=== PATIENT | female | born 2000 | race African-American/Black ===

== ENCOUNTER 2024-12-15 09:39 | Inpatient (IN) ==
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
[2024-12-15 11:01] LABS: Basophils # (auto) 0.01 K/uL (0.00-0.20); Basophils % (auto) 0.2 %; Eosinophils # (auto) 0.03 K/uL (0.00-0.50); Eosinophils % (auto) 0.5 %; Hematocrit (blood only) 37.2 % (37.0-47.0); Hemoglobin 12.6 g/dl (12.0-16.0); Immature Granulocytes # (auto) 0.01 K/uL (0.01-0.20); Immature Granulocytes % (auto) 0.2 %; Lymphocytes # (auto) 1.28 K/uL (1.20-3.40); Lymphocytes % (auto) 20.5 %; Mean Corpuscular Hemoglobin 29.6 pg (25.0-34.0); Mean Corpuscular Hgb Conc 33.9 g/dL (32.0-36.0); Mean Corpuscular Volume 87.3 fL (80.0-100.0); Mean Platelet Volume 10.4 fL (9.4-12.4); Monocytes % (auto) 6.4 %; Neutrophils # (auto) 4.51 K/uL (1.40-6.50); Neutrophils % (auto) 72.2 %; Platelet Count 210 K/uL (130-400); RDW Coefficient of Variation 14.7 % (11.5-14.5); RDW Standard Deviation 46.5 fL (36.4-46.3); Red Blood Count 4.26 M/uL (4.20-5.40); White Blood Count 6.24 K/ul (4.8-10.8)
[2024-12-15 11:36] LABS: Albumin Globulin Ratio 1.4 (0.9-2); Albumin Level 3.8 gm/dl (3.4-5.0); BUN Creatinine Ratio 11.5 (10-20); Bilirubin,Total 0.7 mg/dl (0.2-1.0); Calcium 8.2 mg/dl (8.6-10.3); Creatinine Clr Calc Pharmacy 132.2 ml/min; Globulin 2.8 gm/dl (2.5-4.0); Magnesium 1.6 mg/dl (1.7-2.4); Potassium 3.5 mmol/L (3.5-5.1); Total Protein 6.6 gm/dl (6.0-8.3); Uric Acid 5.6 mg/dl (2.6-7.2)
[2024-12-15 11:37] LABS: INR 1.1 (0.9-1.1); Partial Thromboplastin Time 27 Seconds (21-31)
[2024-12-15] MEDS: LABETALOL HCL IV 5 MG/ML 20ML IV STA ×2 (11:46→13:01)
[2024-12-15] MEDS: MAGNESIUM SULFATE / D5W 1 GM/100 ML BAG IV ONE (11:51)
[2024-12-15] MEDS: LACTATED RINGER'S 1,000 ML IV SCH (13:07)
[2024-12-15] MEDS: MAGNESIUM SULFATE / WTR 40 GM/1,000 ML BAG IV SCH (13:07)
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
[2024-12-15 13:30] LABS: Appearance Urine Cloudy (Clear); Bacteria Urine Automated None Seen (None Seen); Bilirubin Urine Negative (Negative); Blood Urine 3+ (Negative); Cast Urine Automated 0-2 /lpf (0-2); Color Urine Yellow; Glucose Urine UA Negative (Negative); Ketones Urine Negative (Negative); Leukocyte Esterase Urine 3+ (Negative); Nitrite Urine Negative (Negative); Protein Urine Negative (Negative); Specific Gravity Urine 1.008 (1.000-1.030); Urobilinogen Urine Negative (Negative); WBC Urine Automated 0-5 /hpf (0-5)
[2024-12-15] MEDS: ACETAMINOPHEN 325 MG TAB PO PRN (13:38)
[2024-12-15] MEDS: MAGNESIUM SULFATE 40GM / WTR 1,000 ML BAG IV ONE (13:41)
[2024-12-15] MEDS: LIDOCAINE 2% JELLY 5 ML TUBE EXT ONE (13:43)
[2024-12-15] MEDS: MAG SULFATE 4GM BOLUS FROM BAG IV ONE (13:43)
[2024-12-15 13:44] LABS: Total Protein Urine Random 7.9 mg/dl (0-11.9)
[2024-12-15 13:50] LABS: Creatinine Urine Random 26.7 mg/dl; Protein Creatinine Ratio Urine 0.3 (0-0.2)
--- NOTE | 2024-12-15 23:28 | Electrocardiogram Report ---
Test Reason : Blood Pressure : */* mmHG Vent. Rate : 58 BPM Atrial Rate : 58 BPM P-R Int : 162 ms QRS Dur : 76 ms QT Int : 448 ms P-R-T Axes : 37 59 60 degrees QTcB Int : 439 ms Sinus bradycardia Otherwise normal ECG No previous ECGs available Confirmed by Familia Jennings ([id number]) on 12/15/2024 11:27:55 PM Referred By: Confirmed By: Familia Jennings
[2024-12-16 06:39] LABS: Basophils # (auto) 0.01 K/uL (0.00-0.20); Basophils % (auto) 0.2 %; Eosinophils # (auto) 0.01 K/uL (0.00-0.50); Eosinophils % (auto) 0.2 %; Hematocrit (blood only) 35.3 % (37.0-47.0); Hemoglobin 11.7 g/dl (12.0-16.0); Immature Granulocytes # (auto) 0.01 K/uL (0.01-0.20); Immature Granulocytes % (auto) 0.2 %; Lymphocytes # (auto) 0.99 K/uL (1.20-3.40); Lymphocytes % (auto) 17.8 %; Mean Corpuscular Hemoglobin 28.7 pg (25.0-34.0); Mean Corpuscular Hgb Conc 33.1 g/dL (32.0-36.0); Mean Corpuscular Volume 86.7 fL (80.0-100.0); Mean Platelet Volume 10.1 fL (9.4-12.4); Monocytes % (auto) 7.2 %; Neutrophils # (auto) 4.14 K/uL (1.40-6.50); Neutrophils % (auto) 74.4 %; Platelet Count 194 K/uL (130-400); RDW Coefficient of Variation 14.8 % (11.5-14.5); RDW Standard Deviation 47.1 fL (36.4-46.3); Red Blood Count 4.07 M/uL (4.20-5.40); White Blood Count 5.56 K/ul (4.8-10.8)
[2024-12-16 07:00] LABS: Albumin Globulin Ratio 1.3 (0.9-2); Albumin Level 3.2 gm/dl (3.4-5.0); BUN Creatinine Ratio 4.7 (10-20); Bilirubin Direct 0.1 mg/dl (0-0.2); Bilirubin,Total 0.6 mg/dl (0.2-1.0); Calcium 6.7 mg/dl (8.6-10.3); Creatinine Clr Calc Pharmacy 127.8 ml/min; Globulin 2.5 gm/dl (2.5-4.0); Potassium 3.2 mmol/L (3.5-5.1); Total Protein 5.7 gm/dl (6.0-8.3); Uric Acid 6.1 mg/dl (2.6-7.2)
[2024-12-16] MEDS ORDERED: IBUPROFEN 200 MG/10 ML UDC PO PRN (09:14)
[2024-12-16] MEDS ORDERED: Nursing to Pharmacy Communication SCH (09:30)
[2024-12-16] MEDS: IBUPROFEN 600 MG TAB PO PRN (09:38)
[2024-12-16] MEDS ORDERED: BUTALBITAL/ACETAMIN/CAFFEINE TAB PO PRN (10:53)
--- NOTE | 2024-12-16 10:58 | Obstetrical Progress Note ---
Date of Service December 16, 2024 Assessment & Plan Admission and Anticipated Discharge Date Admission Date: December 15, 2024 Subjective Patient is seen and examined. She no complains of migraine OATES since yesterday, it was throbbing yesterday in ER when her BP's were elevated, Now feels milder on one side of episcopalian. No change in vision/N&V/ Epig/ RUQ pain Ambulating without dizziness Voiding without difficulty Tolerating regular diet with out N&V Bleeding is minimal No fever/ chills/ CP/ SOB/ N&V/ Leg pain Breast feeding without problems Vital Signs Temp Pulse Resp BP Pulse Ox O2 Del Method 12/16/24 10:55 91 H 96 12/16/24 10:54 85 126/77 12/16/24 10:50 90 96 12/16/24 10:45 86 92 12/16/24 10:40 87 93 12/16/24 10:35 92 H 95 12/16/24 10:30 89 91 12/16/24 10:29 90 89 L 12/16/24 10:25 90 92 12/16/24 10:22 88 89 L 12/16/24 10:20 89 91 12/16/24 10:15 90 92 12/16/24 10:10 90 95 12/16/24 10:05 91 H 94 12/16/24 10:00 94 H 93 12/16/24 09:55 93 H 94 12/16/24 09:54 92 H 126/75 12/16/24 09:50 18 12/16/24 09:50 92 H 96 12/16/24 09:45 89 95 12/16/24 09:40 88 95 12/16/24 09:35 87 94 12/16/24 09:30 95 H 93 12/16/24 09:25 86 90 12/16/24 09:20 84 92 12/16/24 09:15 84 92 12/16/24 09:10 83 95 12/16/24 09:05 86 93 12/16/24 09:02 18 12/16/24 09:00 85 93 12/16/24 08:55 93 H 97 12/16/24 08:54 86 120/79 12/16/24 08:50 85 91 12/16/24 08:45 87 94 12/16/24 08:40 87 93 12/16/24 08:35 85 90 12/16/24 08:31 83 86 L 12/16/24 08:30 93 H 94 12/16/24 08:26 84 89 L 12/16/24 08:25 85 93 12/16/24 08:20 85 90 12/16/24 08:15 84 92 12/16/24 08:10 85 92 12/16/24 08:05 84 93 12/16/24 08:00 16 12/16/24 08:00 91 H 92 12/16/24 07:55 82 92 12/16/24 07:54 81 133/75 12/16/24 07:50 83 92 12/16/24 07:45 83 93 12/16/24 07:40 83 92 12/16/24 07:35 84 94 12/16/24 07:30 84 93 12/16/24 07:25 86 94 12/16/24 07:20 83 92 12/16/24 07:15 87 94 12/16/24 07:10 85 92 12/16/24 07:05 85 92 12/16/24 07:00 36.7 C 16 12/16/24 07:00 Room Air 12/16/24 07:00 84 92 12/16/24 06:55 84 92 12/16/24 06:54 83 124/73 12/16/24 06:50 84 91 12/16/24 06:45 86 92 12/16/24 06:40 84 92 12/16/24 06:35 85 91 12/16/24 06:30 84 91 12/16/24 06:29 88 93 12/16/24 06:25 85 93 12/16/24 06:20 84 93 12/16/24 06:19 88 93 12/16/24 06:15 85 93 12/16/24 06:13 91 H 92 12/16/24 06:10 84 91 12/16/24 06:05 86 90 12/16/24 06:00 16 12/16/24 06:00 88 92 12/16/24 05:55 88 92 12/16/24 05:54 88 125/68 05 05:52 87 91 12/16/24 05:50 86 92 12/16/24 05:45 89 91 12/16/24 05:40 85 92 12/16/24 05:35 85 92 12/16/24 05:32 92 H 94 12/16/24 05:30 83 92 12/16/24 05:25 85 92 12/16/24 05:20 87 91 12/16/24 05:15 87 91 12/16/24 05:10 85 91 12/16/24 05:08 84 90 12/16/24 05:05 86 87 L 12/16/24 05:00 16 12/16/24 05:00 94 H 90 12/16/24 04:55 84 89 L 12/16/24 04:54 89 142/77 H 89 L 12/16/24 04:50 85 88 L 12/16/24 04:45 86 89 L 12/16/24 04:40 85 89 L 12/16/24 04:35 84 88 L 12/16/24 04:30 86 88 L 12/16/24 04:25 84 88 L 12/16/24 04:20 84 88 L 12/16/24 04:15 84 88 L 12/16/24 04:10 84 88 L 12/16/24 04:05 83 88 L 12/16/24 04:01 16 12/16/24 04:00 84 89 L 12/16/24 03:55 83 89 L 12/16/24 03:54 82 129/74 12/16/24 03:50 85 88 L 12/16/24 03:45 88 92 12/16/24 03:40 86 92 12/16/24 03:35 88 92 12/16/24 03:30 85 90 12/16/24 03:25 90 91 12/16/24 03:21 93 H 92 12/16/24 03:20 91 H 90 12/16/24 03:15 86 89 L 12/16/24 03:10 90 89 L 12/16/24 03:05 88 90 12/16/24 03:00 16 12/16/24 03:00 90 89 L 12/16/24 02:55 88 89 L 12/16/24 02:54 88 130/73 12/16/24 02:50 91 H 89 L 12/16/24 02:45 92 H 89 L 12/16/24 02:40 92 H 89 L 12/16/24 02:35 88 89 L 12/16/24 02:30 91 H 90 12/16/24 02:25 88 89 L 12/16/24 02:20 91 H 89 L 12/16/24 02:15 94 H 89 L 12/16/24 02:10 93 H 89 L 12/16/24 02:05 92 H 88 L 12/16/24 02:00 16 12/16/24 02:00 96 H 18 89 L 12/16/24 01:55 94 H 90 12/16/24 01:54 95 H 137/77 12/16/24 01:50 95 H 89 L 12/16/24 01:45 92 H 90 12/16/24 01:40 92 H 89 L 12/16/24 01:35 90 90 12/16/24 01:30 92 H 89 L 12/16/24 01:25 91 H 90 12/16/24 01:20 90 94 12/16/24 01:15 91 H 94 12/16/24 01:14 91 H 94 12/16/24 01:10 94 H 98 12/16/24 01:05 91 H 94 12/16/24 01:00 18 12/16/24 01:00 96 H 96 12/16/24 00:58 89 94 12/16/24 00:55 97 H 96 12/16/24 00:54 92 H 138/84 12/16/24 00:50 91 H 94 12/16/24 00:49 89 94 12/16/24 00:45 89 95 12/16/24 00:43 90 94 12/16/24 00:40 90 95 12/16/24 00:38 89 94 12/16/24 00:35 91 H 94 12/16/24 00:32 92 H 94 12/16/24 00:30 90 94 12/16/24 00:26 91 H 94 12/16/24 00:25 91 H 94 12/16/24 00:20 92 H 94 12/16/24 00:18 92 H 94 12/16/24 00:15 92 H 94 12/16/24 00:13 91 H 94 12/16/24 00:10 91 H 94 12/16/24 00:05 92 H 94 12/16/24 00:00 16 12/16/24 00:00 90 94 12/15/24 23:55 89 94 12/15/24 23:54 94 H 134/80 94 12/15/24 23:50 92 H 94 12/15/24 23:48 91 H 94 12/15/24 23:45 93 H 94 12/15/24 23:42 92 H 94 12/15/24 23:40 94 H 94 12/15/24 23:37 92 H 94 12/15/24 23:35 91 H 95 12/15/24 23:31 92 H 94 12/15/24 23:30 91 H 95 12/15/24 23:26 91 H 94 12/15/24 23:25 90 95 12/15/24 23:20 94 H 94 12/15/24 23:18 90 94 12/15/24 23:15 94 H 95 12/15/24 23:13 90 94 12/15/24 23:10 91 H 95 12/15/24 23:08 93 H 94 12/15/24 23:05 89 95 12/15/24 23:02 91 H 94 12/15/24 23:00 16 12/15/24 23:00 92 H 96 PE: General: Alert, orientedx3, NAD Abd: soft, NT, fundus firm, below Umbilicus Perineum intact, Lochia rubra minimal Ext; NT, no edema, no DTR AP: 24 yo s/p , ppd# 11, admitted for Preeclampsia with severe features, on IV Magnesium VSS Afebrile doing well Fiorecet for Migraine Check Magnesium levels Continue routine care All questions were answered D/C IV magnesium after 24 hours Results & Data Vital Signs (Past 12 Hours) Vital Signs Temp Pulse Resp BP Pulse Ox O2 Del Method 12/16/24 10:54 85 126/77 12/16/24 10:50 90 96 12/16/24 10:45 86 92 12/16/24 10:40 87 93 12/16/24 10:35 92 H 95 12/16/24 10:30 89 91 12/16/24 10:29 90 89 L 12/16/24 10:25 90 92 12/16/24 10:22 88 89 L 12/16/24 10:20 89 91 12/16/24 10:15 90 92 12/16/24 10:10 90 95 12/16/24 10:05 91 H 94 12/16/24 10:00 94 H 93 12/16/24 09:55 93 H 94 12/16/24 09:54 92 H 126/75 12/16/24 09:50 18 12/16/24 09:50 92 H 96 12/16/24 09:45 89 95 12/16/24 09:40 88 95 12/16/24 09:35 87 94 12/16/24 09:30 95 H 93 12/16/24 09:25 86 90 12/16/24 09:20 84 92 12/16/24 09:15 84 92 12/16/24 09:10 83 95 12/16/24 09:05 86 93 12/16/24 09:02 18 12/16/24 09:00 85 93 12/16/24 08:55 93 H 97 12/16/24 08:54 86 120/79 12/16/24 08:50 85 91 12/16/24 08:45 87 94 12/16/24 08:40 87 93 12/16/24 08:35 85 90 12/16/24 08:31 83 86 L 12/16/24 08:30 93 H 94 12/16/24 08:26 84 89 L 12/16/24 08:25 85 93 12/16/24 08:20 85 90 12/16/24 08:15 84 92 12/16/24 08:10 85 92 12/16/24 08:05 84 93 12/16/24 08:00 16 12/16/24 08:00 91 H 92 12/16/24 07:55 82 92 12/16/24 07:54 81 133/75 12/16/24 07:50 83 92 12/16/24 07:45 83 93 12/16/24 07:40 83 92 12/16/24 07:35 84 94 12/16/24 07:30 84 93 12/16/24 07:25 86 94 12/16/24 07:20 83 92 12/16/24 07:15 87 94 12/16/24 07:10 85 92 12/16/24 07:05 85 92 12/16/24 07:00 36.7 C 16 12/16/24 07:00 Room Air 12/16/24 07:00 84 92 12/16/24 06:55 84 92 12/16/24 06:54 83 124/73 05/03/25 06:50 84 91 12/16/24 06:45 86 92 12/16/24 06:40 84 92 12/16/24 06:35 85 91 12/16/24 06:30 84 91 12/16/24 06:29 88 93 12/16/24 06:25 85 93 12/16/24 06:20 84 93 12/16/24 06:19 88 93 12/16/24 06:15 85 93 12/16/24 06:13 91 H 92 12/16/24 06:10 84 91 12/16/24 06:05 86 90 12/16/24 06:00 16 12/16/24 06:00 88 92 12/16/24 05:55 88 92 12/16/24 05:54 88 125/68 12/16/24 05:52 87 91 12/16/24 05:50 86 92 12/16/24 05:45 89 91 12/16/24 05:40 85 92 12/16/24 05:35 85 92 12/16/24 05:32 92 H 94 12/16/24 05:30 83 92 12/16/24 05:25 85 92 12/16/24 05:20 87 91 12/16/24 05:15 87 91 12/16/24 05:10 85 91 12/16/24 05:08 84 90 12/16/24 05:05 86 87 L 12/16/24 05:00 16 12/16/24 05:00 94 H 90 12/16/24 04:55 84 89 L 12/16/24 04:54 89 142/77 H 89 L 12/16/24 04:50 85 88 L 12/16/24 04:45 86 89 L 12/16/24 04:40 85 89 L 12/16/24 04:35 84 88 L 12/16/24 04:30 86 88 L 12/16/24 04:25 84 88 L 12/16/24 04:20 84 88 L 12/16/24 04:15 84 88 L 12/16/24 04:10 84 88 L 12/16/24 04:05 83 88 L 12/16/24 04:01 16 12/16/24 04:00 84 89 L 12/16/24 03:55 83 89 L 12/16/24 03:54 82 129/74 12/16/24 03:50 85 88 L 12/16/24 03:45 88 92 12/16/24 03:40 86 92 12/16/24 03:35 88 92 12/16/24 03:30 85 90 12/16/24 03:25 90 91 12/16/24 03:21 93 H 92 12/16/24 03:20 91 H 90 12/16/24 03:15 86 89 L 12/16/24 03:10 90 89 L 12/16/24 03:05 88 90 12/16/24 03:00 16 12/16/24 03:00 90 89 L 12/16/24 02:55 88 89 L 12/16/24 02:54 88 130/73 12/16/24 02:50 91 H 89 L 12/16/24 02:45 92 H 89 L 12/16/24 02:40 92 H 89 L 12/16/24 02:35 88 89 L 12/16/24 02:30 91 H 90 12/16/24 02:25 88 89 L 12/16/24 02:20 91 H 89 L 12/16/24 02:15 94 H 89 L 12/16/24 02:10 93 H 89 L 12/16/24 02:05 92 H 88 L 12/16/24 02:00 16 12/16/24 02:00 96 H 18 89 L 12/16/24 01:55 94 H 90 12/16/24 01:54 95 H 137/77 12/16/24 01:50 95 H 89 L 12/16/24 01:45 92 H 90 12/16/24 01:40 92 H 89 L 12/16/24 01:35 90 90 12/16/24 01:30 92 H 89 L 12/16/24 01:25 91 H 90 12/16/24 01:20 90 94 12/16/24 01:15 91 H 94 12/16/24 01:14 91 H 94 12/16/24 01:10 94 H 98 12/16/24 01:05 91 H 94 12/16/24 01:00 18 12/16/24 01:00 96 H 96 12/16/24 00:58 89 94 12/16/24 00:55 97 H 96 05/03/25 00:54 92 H 138/84 05 00:50 91 H 94 0503 00:49 89 94 0503 00:45 89 95 05 00:43 90 94 12/16/24 00:40 90 95 05 00:38 89 94 12/16/24 00:35 91 H 94 12/16/24 00:32 92 H 94 12/16/24 00:30 90 94 12/16/24 00:26 91 H 94 12/16/24 00:25 91 H 94 12/16/24 00:20 92 H 94 12/16/24 00:18 92 H 94 12/16/24 00:15 92 H 94 12/16/24 00:13 91 H 94 12/16/24 00:10 91 H 94 12/16/24 00:05 92 H 94 12/16/24 00:00 16 12/16/24 00:00 90 94 12/15/24 23:55 89 94 05 23:54 94 H 134/80 94 12/15/24 23:50 92 H 94 02 23:48 91 H 94 12/15/24 23:45 93 H 94 12/15/24 23:42 92 H 94 12/15/24 23:40 94 H 94 12/15/24 23:37 92 H 94 12/15/24 23:35 91 H 95 12/15/24 23:31 92 H 94 12/15/24 23:30 91 H 95 12/15/24 23:26 91 H 94 05 23:25 90 95 02 23:20 94 H 94 05 23:18 90 94 0502 23:15 94 H 95 0502 23:13 90 94 05/02 23:10 91 H 95 0502 23:08 93 H 94 12/15/24 23:05 89 95 05 23:02 91 H 94 05 23:00 16 12/15/24 23:00 92 H 96 05 22:56 93 H 93
[2024-12-16] MEDS: SODIUM CHLORIDE 0.65% NA SOLN 45 ML (OCEAN) PRN (11:00)
[2024-12-16 21:05] VITALS: RESP 18
[2024-12-16 23:57] VITALS: TEMP 98.6; O2SAT 97
[2024-12-17 07:07] LABS: Basophils # (auto) 0.01 K/uL (0.00-0.20); Basophils % (auto) 0.2 %; Eosinophils # (auto) 0.06 K/uL (0.00-0.50); Eosinophils % (auto) 1.1 %; Hematocrit (blood only) 35.2 % (37.0-47.0); Hemoglobin 11.7 g/dl (12.0-16.0); Immature Granulocytes # (auto) 0.01 K/uL (0.01-0.20); Immature Granulocytes % (auto) 0.2 %; Lymphocytes # (auto) 1.24 K/uL (1.20-3.40); Mean Corpuscular Hgb Conc 33.2 g/dL (32.0-36.0); Mean Corpuscular Volume 87.1 fL (80.0-100.0); Mean Platelet Volume 9.8 fL (9.4-12.4); Monocytes # (auto) 0.36 K/uL (0.11-0.59); Monocytes % (auto) 6.7 %; Neutrophils % (auto) 68.8 %; Platelet Count 183 K/uL (130-400); RDW Coefficient of Variation 14.7 % (11.5-14.5); RDW Standard Deviation 46.7 fL (36.4-46.3); Red Blood Count 4.04 M/uL (4.20-5.40); White Blood Count 5.38 K/ul (4.8-10.8)
[2024-12-17 07:35] LABS: Albumin Globulin Ratio 1.2 (0.9-2); Albumin Level 3.1 gm/dl (3.4-5.0); BUN Creatinine Ratio 11.1 (10-20); Bilirubin,Total 0.6 mg/dl (0.2-1.0); Calcium 7.3 mg/dl (8.6-10.3); Creatinine Clr Calc Pharmacy 151.5 ml/min; Globulin 2.6 gm/dl (2.5-4.0); Magnesium Therapeutic L&D Only 2.6 mg/dL (4.0-8.0); Potassium 3.2 mmol/L (3.5-5.1); Total Protein 5.7 gm/dl (6.0-8.3)
[2024-12-17 08:31] VITALS: BP 134/88
--- NOTE | 2024-12-17 08:52 | Obstetrical Progress Note ---
Date of Service December 17, 2024 Assessment & Plan Admission and Anticipated Discharge Date Admission Date: December 15, 2024 Subjective Patient is seen and examined. She feels well, no complaints. Ambulating without dizziness Voiding without difficulty Tolerating regular diet with out N&V Bleeding is minimal No fever/ chills/ CP/ SOB/ N&V/ Leg pain Breast feeding / pumping, baby is at home Vital Signs Temp Pulse Resp BP Pulse Ox O2 Del Method 12/17/24 07:30 57 L 18 134/88 97 Room Air 12/17/24 03:19 60 124/74 12/16/24 23:56 37 C 68 18 129/87 97 Room Air Lab Results 12/15/24 12/15/24 12/16/24 Range/Units 10:35 Unknown 06:13 WBC 6.24 5.56 (4.8-10.8) K/ul RBC 4.26 4.07 L (4.20-5.40) M/uL Hgb 12.6 11.7 L (12.0-16.0) g/dl Hct 37.2 35.3 L (37.0-47.0) % MCV 87.3 86.7 (80.0-100.0) fL MCH 29.6 28.7 (25.0-34.0) pg MCHC 33.9 33.1 (32.0-36.0) g/dL RDW Std Deviation 46.5 H 47.1 H (36.4-46.3) fL RDW Coeff of Ronaldo 14.7 H 14.8 H (11.5-14.5) % Plt Count 210 194 (130-400) K/uL MPV 10.4 10.1 (9.4-12.4) fL Immature Gran % (Auto) 0.2 0.2 % Neut % (Auto) 72.2 74.4 % Lymph % (Auto) 20.5 17.8 % [place] % (Auto) 6.4 7.2 % Eos % (Auto) 0.5 0.2 % Baso % (Auto) 0.2 0.2 % Neut # (Auto) 4.51 4.14 (1.40-6.50) K/uL Lymph # (Auto) 1.28 0.99 L (1.20-3.40) K/uL [place] # (Auto) 0.40 0.40 (0.11-0.59) K/uL Eos # (Auto) 0.03 0.01 (0.00-0.50) K/uL Baso # (Auto) 0.01 0.01 (0.00-0.20) K/uL Immature Gran # (Auto) 0.01 0.01 (0.01-0.20) K/uL PT 12.0 (9.0-12.0) Seconds INR 1.1 (0.9-1.1) APTT 27 (21-31) Seconds PTT Ratio 1.0 Sodium 143 140 (136-145) mmol/L Potassium 3.5 3.2 L (3.5-5.1) mmol/L Chloride 111 H 106 (98-107) mmol/L Carbon Dioxide 25 27 (21-32) mmol/L Anion Gap 7 7 (3-11) BUN 7 3 L (6-23) mg/dl Creatinine 0.61 0.64 (0.6-1.2) mg/dl Est Cr Clr Drug Dosing 132.2 127.8 ml/min eGFR 127.16 125.70 BUN/Creatinine Ratio 11.5 4.7 L (10-20) Glucose 84 96 (70-99(Fasting)) mg/dl Uric Acid 5.6 6.1 (2.6-7.2) mg/dl Calcium 8.2 L 6.7 L (8.6-10.3) mg/dl Magnesium 1.6 L Cancelled (1.7-2.4) mg/dl Magnesium (Sulf Ther) 6.1 (4.0-8.0) mg/dL Total Bilirubin 0.7 0.6 (0.2-1.0) mg/dl Direct Bilirubin 0.1 (0-0.2) mg/dl AST 19 15 (13-39) U/L ALT 21 17 (7-52) U/L Alkaline Phosphatase 111 H 108 H (34-104) U/L Lactate Dehydrogenase 230 201 (86-244) U/L Total Protein 6.6 5.7 L (6.0-8.3) gm/dl Albumin 3.8 3.2 L (3.4-5.0) gm/dl Globulin 2.8 2.5 (2.5-4.0) gm/dl Albumin/Globulin Ratio 1.4 1.3 (0.9-2) Urine Color Yellow Urine Appearance Cloudy A (Clear) Urine pH 7.0 (4.5-7.5) Ur Specific [place] 1.008 (1.000-1.030) Urine Protein Negative (Negative) Urine Glucose (UA) Negative (Negative) Urine Ketones Negative (Negative) Urine Blood 3+ H (Negative) Urine Nitrite Negative (Negative) Urine Bilirubin Negative (Negative) Urine Urobilinogen Negative (Negative) Ur Leukocyte Esterase 3+ H (Negative) Urine WBC (Auto) 0-5 (0-5) /hpf Urine RBC (Auto) 3-5 H (0-2) /hpf U Hyaline Cast (Auto) 0-2 (0-2) /lpf U Epithel Cells (Auto) 3-5 H (0-2) /hpf Urine Bacteria (Auto) None Seen (None Seen) Ur Random Creatinine 26.7 mg/dl U Random Total Protein 7.9 (0-11.9) mg/dl Protein/Creatinin Ratio 0.3 H (0-0.2) 05/04/25 Range/Units 06:50 WBC 5.38 (4.8-10.8) K/ul RBC 4.04 L (4.20-5.40) M/uL Hgb 11.7 L (12.0-16.0) g/dl Hct 35.2 L (37.0-47.0) % MCV 87.1 (80.0-100.0) fL MCH 29.0 (25.0-34.0) pg MCHC 33.2 (32.0-36.0) g/dL RDW Std Deviation 46.7 H (36.4-46.3) fL RDW Coeff of Ronaldo 14.7 H (11.5-14.5) % Plt Count 183 (130-400) K/uL MPV 9.8 (9.4-12.4) fL Immature Gran % (Auto) 0.2 % Neut % (Auto) 68.8 % Lymph % (Auto) 23.0 % [place] % (Auto) 6.7 % Eos % (Auto) 1.1 % Baso % (Auto) 0.2 % Neut # (Auto) 3.70 (1.40-6.50) K/uL Lymph # (Auto) 1.24 (1.20-3.40) K/uL [place] # (Auto) 0.36 (0.11-0.59) K/uL Eos # (Auto) 0.06 (0.00-0.50) K/uL Baso # (Auto) 0.01 (0.00-0.20) K/uL Immature Gran # (Auto) 0.01 (0.01-0.20) K/uL PT (9.0-12.0) Seconds INR (0.9-1.1) APTT (21-31) Seconds PTT Ratio Sodium 143 (136-145) mmol/L Potassium 3.2 L (3.5-5.1) mmol/L Chloride 109 H (98-107) mmol/L Carbon Dioxide 29 (21-32) mmol/L Anion Gap 5 (3-11) BUN 6 (6-23) mg/dl Creatinine 0.54 L (0.6-1.2) mg/dl Est Cr Clr Drug Dosing 151.5 ml/min eGFR 130.95 BUN/Creatinine Ratio 11.1 (10-20) Glucose 95 (70-99(Fasting)) mg/dl Uric Acid (2.6-7.2) mg/dl Calcium 7.3 L (8.6-10.3) mg/dl Magnesium (1.7-2.4) mg/dl Magnesium (Sulf Ther) 2.6 L (4.0-8.0) mg/dL Total Bilirubin 0.6 (0.2-1.0) mg/dl Direct Bilirubin (0-0.2) mg/dl AST 12 L (13-39) U/L ALT 14 (7-52) U/L Alkaline Phosphatase 102 (34-104) U/L Lactate Dehydrogenase (86-244) U/L Total Protein 5.7 L (6.0-8.3) gm/dl Albumin 3.1 L (3.4-5.0) gm/dl Globulin 2.6 (2.5-4.0) gm/dl Albumin/Globulin Ratio 1.2 (0.9-2) Urine Color Urine Appearance (Clear) Urine pH (4.5-7.5) Ur Specific [place] (1.000-1.030) Urine Protein (Negative) Urine Glucose (UA) (Negative) Urine Ketones (Negative) Urine Blood (Negative) Urine Nitrite (Negative) Urine Bilirubin (Negative) Urine Urobilinogen (Negative) Ur Leukocyte Esterase (Negative) Urine WBC (Auto) (0-5) /hpf Urine RBC (Auto) (0-2) /hpf U Hyaline Cast (Auto) (0-2) /lpf U Epithel Cells (Auto) (0-2) /hpf Urine Bacteria (Auto) (None Seen) Ur Random Creatinine mg/dl U Random Total Protein (0-11.9) mg/dl Protein/Creatinin Ratio (0-0.2) PE: General: Alert, orientedx3, NAD Abd: soft, NT, fundus firm, below Umbilicus Perineum intact, Lochia rubra minimal Ext; NT, no edema AP: 24 yo s/p , ppd# 12, s/p IV Magnesium for preeclampsia, VSS Afebrile doing well Labs WNL Continue routine care All questions were answered D/C home , F/U IN OFFICE this week for BP check Results & Data Vital Signs (Past 12 Hours) Vital Signs Temp Pulse Resp BP Pulse Ox O2 Del Method 12/17/24 07:30 57 L 18 134/88 97 Room Air 12/17/24 03:19 60 124/74 12/16/24 23:56 37 C 68 18 129/87 97 Room Air
[2024-12-17 09:47] VITALS: PULSE 59
== END 2024-12-17 10:30 | disposition home health service (06) | DRG 776 ==
LOC: ED 09:39 → 4S1 12:05 → 4E2 12-16 16:15

== ENCOUNTER 2024-12-18 04:52 | Inpatient (IN) ==
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
[2024-12-18] MEDS: METOCLOPRAMIDE HCL INJ 5 MG/ML 2 ML VIAL IV ONE (05:26)
[2024-12-18] MEDS: diphenhydrAMINE 50 MG/ML VIAL IV STA (05:26)
[2024-12-18] MEDS: KETOROLAC TROMETHAMINE 15 MG/ML VIAL IV ONE (05:26)
[2024-12-18] MEDS: SODIUM CHLORIDE 0.9% 1,000 ML IV ONE (05:33)
[2024-12-18] MEDS: PROCHLORPERAZINE 1 ML IV ONE (05:34)
[2024-12-18 05:38] LABS: Basophils # (auto) 0.01 K/uL (0.00-0.20); Basophils % (auto) 0.2 %; Eosinophils # (auto) 0.08 K/uL (0.00-0.50); Eosinophils % (auto) 1.4 %; Hematocrit (blood only) 39.8 % (37.0-47.0); Hemoglobin 13.1 g/dl (12.0-16.0); Immature Granulocytes # (auto) 0.01 K/uL (0.01-0.20); Immature Granulocytes % (auto) 0.2 %; Lymphocytes # (auto) 1.66 K/uL (1.20-3.40); Lymphocytes % (auto) 28.2 %; Mean Corpuscular Hemoglobin 29.2 pg (25.0-34.0); Mean Corpuscular Hgb Conc 32.9 g/dL (32.0-36.0); Mean Corpuscular Volume 88.6 fL (80.0-100.0); Mean Platelet Volume 10.5 fL (9.4-12.4); Monocytes # (auto) 0.44 K/uL (0.11-0.59); Monocytes % (auto) 7.5 %; Neutrophils # (auto) 3.68 K/uL (1.40-6.50); Neutrophils % (auto) 62.5 %; Platelet Count 198 K/uL (130-400); RDW Coefficient of Variation 14.6 % (11.5-14.5); RDW Standard Deviation 47.7 fL (36.4-46.3); Red Blood Count 4.49 M/uL (4.20-5.40); White Blood Count 5.88 K/ul (4.8-10.8)
[2024-12-18] MEDS: MoRPHine SULFATE 4 MG/ML 1 ML CARP\\VIAL IV STA (05:42)
[2024-12-18] MEDS: ONDANSETRON INJ 2 MG/ML 2 ML VIAL IV STA (05:43)
[2024-12-18 05:56] LABS: Albumin Globulin Ratio 1.4 (0.9-2); Albumin Level 4.2 gm/dl (3.4-5.0); BUN Creatinine Ratio 16.4 (10-20); Bilirubin,Total 0.7 mg/dl (0.2-1.0); Calcium 9.2 mg/dl (8.6-10.3); Creatinine Clr Calc Pharmacy 131.5 ml/min; Globulin 3.1 gm/dl (2.5-4.0); Magnesium 1.6 mg/dl (1.7-2.4); Potassium 3.6 mmol/L (3.5-5.1); Total Protein 7.3 gm/dl (6.0-8.3)
[2024-12-18] MEDS: OPTIRAY 320 125ml IV ONE (05:59)
[2024-12-18] MEDS: MAGNESIUM SULFATE / D5W 1 GM/100 ML BAG IV STA (06:04)
[2024-12-18 06:21] LABS: Appearance Urine Clear (Clear); Bacteria Urine Automated 4+ (None Seen); Bilirubin Urine Negative (Negative); Blood Urine 3+ (Negative); Cast Urine Automated 0-2 /lpf (0-2); Color Urine Yellow; Glucose Urine UA Negative (Negative); Ketones Urine Negative (Negative); Leukocyte Esterase Urine 2+ (Negative); Nitrite Urine Negative (Negative); Protein Urine 1+ (Negative); RBC Urine Automated >20 /hpf (0-2); Specific Gravity Urine 1.022 (1.000-1.030); Urobilinogen Urine Negative (Negative); pH Urine 6.5 (4.5-7.5)
--- NOTE | 2024-12-18 06:39 | CT Scan Report ---
EXAM: CT head venogram wo/w con CLINICAL HISTORY: r/o venous sinus thrombosis TECHNIQUE: Multiple axial images are obtained from the skull base to the vertex without and with contrast. CT scan was performed according to ALARA (as low as reasonable achievable). COMPARISON: None. FINDINGS: The brain shows normal morphology, attenuation, and volume for age. No evidence of space occupying lesion, hemorrhage, edema, mass effect, midline shift, extra axial collection, or hydrocephalus is noted. Ventricles, sulci, and basal cisterns are symmetric and normal in size and configuration. The le-white matter differentiation is preserved. Visualized paranasal sinuses and mastoid air cells are well aerated. Orbital contents are within normal limits. Bony structures are intact. Visualized venous structures show normal opacification. No obvious thrombosis. No evidence of intracranial aneurysm or AV malformation is seen. IMPRESSION: 1. No evidence of acute intracranial abnormality is demonstrated 2. No obvious venous sinus thrombosis. Electronically signed by Rashaun Diallo 12-18-2024 06:38 AM
[2024-12-18] MEDS: ACETAMINOPHEN 1,000 MG/100 ML VIAL IV STA (07:10)
[2024-12-18] MEDS: cefTRIAXone SODIUM 1,000 MG/50 ML BAG IV STA (07:33)
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
[2024-12-18] MEDS: LABETALOL HCL IV 5 MG/ML 20ML IV STA ×2 (08:06→12:18)
--- NOTE | 2024-12-18 08:22 | Emergency Department Note ---
ED Visit Note ED NOTE: Received this patient in signout from MELITA Rodarte, at 0815. Please refer to her dictation for the complete history, physical exam and ED course to this point. Briefly, patient is a 24-year-old female, , who returns to the emergency department for complaints of headache and high blood pressure. At change of shift, patient was pending MRI venography of the head to evaluate for possible sinus thrombosis that was possibly visualized on CT. [facility] SECURITY DIRECTOR was aware of the patient, and prepared to admit to their service for preeclampsia. She did receive PO Labetolol and IV magnesium as ordered by Dr. Fernandez pending MRI. MR venography of the head per my interpretation no evidence for dural sinus thrombosis. On-call gynecology, Dr. Sage, was contacted by phone at [phone], and updated with MRI results. Will proceed with gynecologic admission as originally planned. The patient was updated with her MRI results and plan. BP when she returned from MRI was 148/88. She had no questions or concerns. .
[2024-12-18] MEDS: MAGNESIUM SULFATE / WTR 40 GM/1,000 ML BAG IV SCH (08:54)
[2024-12-18] MEDS: LABETALOL HCL 100 MG TAB PO SCH (08:54)
--- NOTE | 2024-12-18 10:14 | Magnetic Resonance Report ---
MR venography head wo con CLINICAL HISTORY: headache. Evaluate for dural sinus thrombosis. COMPARISON STUDY: Head CT and CT V of the head performed earlier today. TECHNIQUE: Utilizing a 3 Leyla magnet and dedicated coil with nydo-to-sujbck technique, unenhanced MR V of the head was obtained. FINDINGS: A 1.7 cm T2 hyperintense focus within the right frontal lobe corresponds to a focus of ence phalomalacia on the head CT. This is chronic. Ventricular system is unremarkable. Basal cisterns are patent. There are no extra-axial collections. The superior sagittal sinus is patent. Small filling de fects within the superior sagittal sinus correspond to the findings on CTV. These are suggestive of a rachnoid granulations. The bilateral transverse and sigmoid sinuses are patent. The visualized portio ns of the proximal bilateral internal jugular veins are patent. IMPRESSION: 1. No evidence for dural sinus thrombosis. 2. Small filling defects within the superior sagittal sinus which correspond to the findings on CTV. These represent arachnoid granulations. ACT 112: Negative or not required by law. Electronically signed by: Hiro [place] M.D. 12/18/2024 10:13 AM
[2024-12-18] MEDS ORDERED: MAGNESIUM SULFATE / WTR 40 GM/1,000 ML BAG IV SCH (11:30)
[2024-12-18] MEDS: MAG SULFATE 4GM BOLUS FROM BAG IV ONE (12:19)
[2024-12-18 12:56] LABS: Creatinine Urine Random 41.4 mg/dl; Protein Creatinine Ratio Urine 0.2 (0-0.2); Total Protein Urine Random 9.1 mg/dl (0-11.9)
[2024-12-18] MEDS: LACTATED RINGER'S 1,000 ML IV SCH (13:00)
[2024-12-18] MEDS ORDERED: LACTATED RINGER'S 500 ML IV SCH (13:15)
[2024-12-18] MEDS: PRENATAL VITAMIN 1 TAB PO SCH (13:18)
[2024-12-18] MEDS ORDERED: Nursing to Pharmacy Communication SCH (13:45)
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
[2024-12-18] MEDS: ACETAMINOPHEN 325 MG TAB PO PRN (17:47)
[2024-12-18] MEDS ORDERED: IBUPROFEN 600 MG TAB PO PRN (18:44)
[2024-12-18] MEDS: DOCUSATE SODIUM 100 MG CAP PO SCH (22:05)
[2024-12-18] MEDS: cephALEXin 500 MG CAP PO SCH (22:05)
[2024-12-19 09:15] LABS: Basophils # (auto) 0.01 K/uL (0.00-0.20); Basophils % (auto) 0.2 %; Eosinophils # (auto) 0.06 K/uL (0.00-0.50); Eosinophils % (auto) 1.2 %; Hematocrit (blood only) 37.4 % (37.0-47.0); Hemoglobin 12.4 g/dl (12.0-16.0); Immature Granulocytes # (auto) 0.01 K/uL (0.01-0.20); Immature Granulocytes % (auto) 0.2 %; Lymphocytes # (auto) 1.08 K/uL (1.20-3.40); Lymphocytes % (auto) 21.6 %; Mean Corpuscular Hemoglobin 28.7 pg (25.0-34.0); Mean Corpuscular Hgb Conc 33.2 g/dL (32.0-36.0); Mean Corpuscular Volume 86.6 fL (80.0-100.0); Mean Platelet Volume 9.6 fL (9.4-12.4); Monocytes # (auto) 0.25 K/uL (0.11-0.59); Neutrophils # (auto) 3.59 K/uL (1.40-6.50); Neutrophils % (auto) 71.8 %; Platelet Count 201 K/uL (130-400); RDW Coefficient of Variation 14.6 % (11.5-14.5); RDW Standard Deviation 47.1 fL (36.4-46.3); Red Blood Count 4.32 M/uL (4.20-5.40)
--- NOTE | 2024-12-19 09:27 | Obstetrical Progress Note ---
Date of Service December 19, 2024 Assessment & Plan (1) Pre-eclampsia in period: Preeclampsia readmission Day #1 Pt on Magnesium sulphate BP stable on Labetalol Pt doing well Headache completely improved [facility] labs on 12/18/24- Unremarkable Repeat [facility] labs today Results & Data Vital Signs (Past 12 Hours) Vital Signs Temp Pulse Resp BP Pulse Ox O2 Del Method 12/19/24 09:19 89 94 12/19/24 09:14 91 H 95 12/19/24 09:09 16 12/19/24 09:09 92 H 96 12/19/24 09:04 93 H 96 12/19/24 09:02 83 121/87 12/19/24 08:59 82 L 12/19/24 08:59 92 H 12/19/24 08:59 93 H 88 L 12/19/24 08:54 83 99 12/19/24 08:50 90 86 L 12/19/24 08:49 83 98 12/19/24 08:44 86 92 12/19/24 08:39 83 94 12/19/24 08:34 85 94 12/19/24 08:29 83 94 12/19/24 08:24 86 93 12/19/24 08:19 82 94 12/19/24 08:14 88 93 12/19/24 08:09 84 95 12/19/24 08:08 16 12/19/24 08:04 86 94 12/19/24 08:01 81 132/77 12/19/24 07:59 86 95 12/19/24 07:54 88 94 12/19/24 07:49 87 94 12/19/24 07:44 83 93 12/19/24 07:39 93 12/19/24 07:39 84 12/19/24 07:39 92 H 88 L 12/19/24 07:34 84 93 12/19/24 07:29 81 93 12/19/24 07:27 86 88 L 12/19/24 07:24 77 94 12/19/24 07:19 84 93 12/19/24 07:14 80 92 12/19/24 07:12 85 88 L 12/19/24 07:09 82 95 12/19/24 07:04 82 96 12/19/24 07:01 81 148/91 H 12/19/24 07:00 36.4 C L 18 12/19/24 07:00 18 12/19/24 07:00 Room Air 12/19/24 06:59 80 95 12/19/24 06:54 87 98 12/19/24 06:50 94 H 139/82 12/19/24 06:49 83 96 12/19/24 06:44 82 96 12/19/24 06:39 85 95 12/19/24 06:34 87 95 12/19/24 06:31 84 87 L 12/19/24 06:29 83 97 12/19/24 06:24 84 96 12/19/24 06:19 83 94 12/19/24 06:14 82 94 12/19/24 06:09 82 94 12/19/24 06:04 81 93 12/19/24 06:01 83 127/75 12/19/24 05:59 83 93 12/19/24 05:54 87 94 12/19/24 05:49 85 94 12/19/24 05:44 86 95 12/19/24 05:39 84 94 12/19/24 05:34 83 95 12/19/24 05:29 85 97 12/19/24 05:24 85 95 12/19/24 05:19 85 97 12/19/24 05:14 84 97 12/19/24 05:09 86 96 12/19/24 05:04 83 99 12/19/24 05:01 87 134/71 12/19/24 05:00 18 12/19/24 04:59 86 96 12/19/24 04:54 85 96 12/19/24 04:49 86 96 12/19/24 04:44 84 95 12/19/24 04:39 85 96 12/19/24 04:34 86 96 12/19/24 04:29 85 96 12/19/24 04:24 86 96 12/19/24 04:19 86 95 12/19/24 04:14 86 97 12/19/24 04:09 85 97 12/19/24 04:04 84 94 12/19/24 04:01 91 H 121/69 12/19/24 04:00 16 12/19/24 03:59 85 95 12/19/24 03:54 88 95 12/19/24 03:49 86 95 12/19/24 03:44 87 96 12/19/24 03:39 87 94 12/19/24 03:34 88 95 12/19/24 03:29 88 94 12/19/24 03:26 85 87 L 12/19/24 03:24 85 93 12/19/24 03:19 96 12/19/24 03:19 92 H 12/19/24 03:19 88 85 L 12/19/24 03:14 86 98 12/19/24 03:09 85 95 12/19/24 03:04 84 97 12/19/24 03:01 85 120/65 12/19/24 03:00 18 12/19/24 02:59 86 95 12/19/24 02:54 85 94 12/19/24 02:49 84 94 12/19/24 02:44 86 95 12/19/24 02:39 85 95 12/19/24 02:34 86 94 12/19/24 02:29 86 94 12/19/24 02:24 88 94 12/19/24 02:19 85 95 12/19/24 02:14 84 99 12/19/24 02:09 85 98 12/19/24 02:04 91 H 96 12/19/24 02:01 83 133/80 12/19/24 02:00 16 12/19/24 01:59 86 96 12/19/24 01:54 85 96 12/19/24 01:49 87 97 12/19/24 01:44 86 96 12/19/24 01:39 87 96 12/19/24 01:34 86 96 12/19/24 01:29 86 96 12/19/24 01:24 85 96 12/19/24 01:19 85 96 12/19/24 01:14 85 96 12/19/24 01:09 83 96 12/19/24 01:04 83 97 12/19/24 01:01 77 139/78 12/19/24 01:00 18 12/19/24 00:59 82 98 12/19/24 00:54 83 97 12/19/24 00:49 79 97 12/19/24 00:44 84 99 12/19/24 00:39 80 97 12/19/24 00:34 92 H 98 12/19/24 00:29 85 97 12/19/24 00:24 87 96 05/06/25 00:19 89 97 05/06/25 00:14 89 96 05/06/25 00:09 90 96 05/0625 00:04 90 96 05/0625 00:01 90 119/58 L 05/06 00:00 18 05/0525 23:59 90 96 05/05/25 23:54 90 96 05/05/25 23:49 92 H 96 05/05/25 23:44 92 H 95 05/05/25 23:39 92 H 96 05/05/25 23:34 91 H 95 05/05/25 23:29 92 H 96 05/05/25 23:24 90 97 05/05/25 23:19 92 H 96 05/05/25 23:14 91 H 97 05/05/25 23:09 87 95 05/05/25 23:04 93 H 95 05/05/25 23:01 99 H 127/69 05/05/25 23:00 18 05/05 22:59 93 H 97 05/05/25 22:54 92 H 96 05/05/25 22:49 95 H 95 05/05/25 22:44 95 H 96 05/05/25 22:39 93 H 96 05/05/25 22:34 92 H 95 05/05/25 22:29 92 H 94 05/05/25 22:24 93 H 94 05/05/25 22:19 92 H 96 05/05/25 22:14 89 96 05/05/25 22:09 87 97 05/05/25 22:04 90 97 05/05/25 22:01 88 133/78 05/05/25 22:00 18 05/05/25 21:59 90 94 05/05/25 21:54 91 H 94 05/05/25 21:49 90 94 05/05/25 21:44 89 94 05/05/25 21:39 89 94 05/05/25 21:34 91 H 95 05/05/25 21:29 91 H 95 05/05/25 21:24 90 94
[2024-12-19 09:47] LABS: Albumin Globulin Ratio 1.2 (0.9-2); Albumin Level 3.3 gm/dl (3.4-5.0); BUN Creatinine Ratio 11.5 (10-20); Bilirubin,Total 0.5 mg/dl (0.2-1.0); Calcium 7.1 mg/dl (8.6-10.3); Creatinine Clr Calc Pharmacy 154.2 ml/min; Globulin 2.7 gm/dl (2.5-4.0); Potassium 3.7 mmol/L (3.5-5.1)
[2024-12-19 13:07] VITALS: O2SAT 86
[2024-12-19 16:29] VITALS: RESP 20; TEMP 98.8
--- NOTE | 2024-12-19 16:55 | Obstetrical Progress Note ---
Date of Service December 19, 2024 Assessment & Plan (1) Hypertension, condition or complication: Preeclampsia readmission for headache pt doing well BP continue to be stab;e seen by social insurance adviser and arrangement made for PCP and home f/u with materials and information [facility] labs today shows nml plt, LFT's Home BP cuff will be brought in by family and nurse with check BP cuff with Bp before disch home D/c home with instructions Results & Data Vital Signs (Past 12 Hours) Vital Signs Temp Pulse Resp BP Pulse Ox O2 Del Method 12/19/24 16:29 37.1 C 20 12/19/24 16:10 83 126/83 12/19/24 14:58 87 135/94 12/19/24 14:03 80 135/83 12/19/24 13:18 18 12/19/24 13:06 86 86 L 12/19/24 13:04 82 97 12/19/24 13:03 79 147/75 H 12/19/24 13:02 86 169/92 H 12/19/24 12:59 88 96 12/19/24 12:54 92 H 95 12/19/24 12:49 95 H 95 12/19/24 12:44 89 95 12/19/24 12:39 89 96 12/19/24 12:34 87 96 12/19/24 12:29 89 97 12/19/24 12:24 92 H 98 12/19/24 12:19 86 98 12/19/24 12:14 86 97 12/19/24 12:10 20 12/19/24 12:09 88 99 12/19/24 12:04 90 97 12/19/24 12:01 92 H 130/75 12/19/24 11:59 94 H 99 12/19/24 11:54 92 H 99 12/19/24 11:49 94 H 98 12/19/24 11:44 93 H 98 12/19/24 11:39 93 H 98 12/19/24 11:34 89 95 12/19/24 11:29 88 95 12/19/24 11:24 90 95 12/19/24 11:19 89 95 12/19/24 11:18 87 142/89 H 12/19/24 11:14 92 H 97 12/19/24 11:09 91 H 96 12/19/24 11:04 93 H 96 12/19/24 11:00 18 12/19/24 10:59 92 H 97 12/19/24 10:54 92 H 97 12/19/24 10:49 93 H 96 12/19/24 10:44 92 H 96 12/19/24 10:39 89 96 12/19/24 10:34 88 97 12/19/24 10:32 102 H 83 L 12/19/24 10:29 94 H 96 12/19/24 10:24 91 H 96 12/19/24 10:19 94 H 95 12/19/24 10:14 98 H 96 12/19/24 10:09 93 H 96 12/19/24 10:08 18 12/19/24 10:04 99 H 93 12/19/24 10:01 100 H 134/71 12/19/24 09:59 97 H 96 12/19/24 09:54 99 H 93 12/19/24 09:49 97 H 94 12/19/24 09:44 94 H 96 12/19/24 09:41 103 H 86 L 12/19/24 09:39 95 H 94 12/19/24 09:34 95 H 95 12/19/24 09:29 91 H 94 12/19/24 09:24 92 H 94 12/19/24 09:19 89 94 12/19/24 09:14 91 H 95 12/19/24 09:09 16 12/19/24 09:09 92 H 96 12/19/24 09:04 93 H 96 12/19/24 09:02 83 121/87 12/19/24 08:59 82 L 12/19/24 08:59 92 H 12/19/24 08:59 93 H 88 L 12/19/24 08:54 83 99 12/19/24 08:50 90 86 L 12/19/24 08:49 83 98 12/19/24 08:44 86 92 12/19/24 08:39 83 94 12/19/24 08:34 85 94 12/19/24 08:29 83 94 12/19/24 08:24 86 93 12/19/24 08:19 82 94 12/19/24 08:14 88 93 12/19/24 08:09 84 95 12/19/24 08:08 16 12/19/24 08:04 86 94 12/19/24 08:01 81 132/77 12/19/24 07:59 86 95 12/19/24 07:54 88 94 12/19/24 07:49 87 94 12/19/24 07:44 83 93 12/19/24 07:39 93 12/19/24 07:39 84 12/19/24 07:39 92 H 88 L 12/19/24 07:34 84 93 12/19/24 07:29 81 93 12/19/24 07:27 86 88 L 12/19/24 07:24 77 94 12/19/24 07:19 84 93 12/19/24 07:14 80 92 12/19/24 07:12 85 88 L 12/19/24 07:09 82 95 12/19/24 07:04 82 96 12/19/24 07:01 81 148/91 H 12/19/24 07:00 36.4 C L 18 12/19/24 07:00 18 12/19/24 07:00 Room Air 12/19/24 06:59 80 95 12/19/24 06:54 87 98 12/19/24 06:50 94 H 139/82 12/19/24 06:49 83 96 12/19/24 06:44 82 96 12/19/24 06:39 85 95 12/19/24 06:34 87 95 12/19/24 06:31 84 87 L 12/19/24 06:29 83 97 12/19/24 06:24 84 96 12/19/24 06:19 83 94 12/19/24 06:14 82 94 12/19/24 06:09 82 94 12/19/24 06:04 81 93 12/19/24 06:01 83 127/75 12/19/24 05:59 83 93 06 05:54 87 94 12/19/24 05:49 85 94 12/19/24 05:44 86 95 12/19/24 05:39 84 94 12/19/24 05:34 83 95 12/19/24 05:29 85 97 12/19/24 05:24 85 95 12/19/24 05:19 85 97 06 05:14 84 97 06 05:09 86 96 12/19/24 05:04 83 99 12/19/24 05:01 87 134/71 12/19/24 05:00 18 12/19/24 04:59 86 96 12/19/24 04:54 85 96
[2024-12-19 17:10] VITALS: BP 143/88; PULSE 71
--- NOTE | 2024-12-20 15:32 | Electrocardiogram Report ---
Test Reason : Blood Pressure : */* mmHG Vent. Rate : 83 BPM Atrial Rate : 83 BPM P-R Int : 148 ms QRS Dur : 74 ms QT Int : 406 ms P-R-T Axes : 26 57 59 degrees QTcB Int : 477 ms Normal sinus rhythm Normal ECG When compared with ECG of 15-Dec-2024 10:26, No significant change was found Confirmed by Rubén Joy ([id number]) on 12/20/2024 3:31:48 PM Referred By: REFERRED SELF Confirmed By: Rubén Joy
== END 2024-12-19 17:29 | disposition home or self-care (01) | DRG 776 ==
LOC: ED 04:52 → 4S1 11:24

== ENCOUNTER 2024-12-21 05:09 | Inpatient (IN) ==
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
[2024-12-21] MEDS: LABETALOL HCL IV 5 MG/ML 20ML IV STA ×2 (05:35→06:12)
[2024-12-21 06:06] LABS: Basophils # (auto) 0.01 K/uL (0.00-0.20); Basophils % (auto) 0.2 %; Eosinophils # (auto) 0.05 K/uL (0.00-0.50); Eosinophils % (auto) 0.8 %; Hematocrit (blood only) 39.8 % (37.0-47.0); Hemoglobin 13.1 g/dl (12.0-16.0); Immature Granulocytes # (auto) 0.02 K/uL (0.01-0.20); Immature Granulocytes % (auto) 0.3 %; Lymphocytes # (auto) 1.54 K/uL (1.20-3.40); Mean Corpuscular Hemoglobin 29.2 pg (25.0-34.0); Mean Corpuscular Hgb Conc 32.9 g/dL (32.0-36.0); Mean Corpuscular Volume 88.8 fL (80.0-100.0); Mean Platelet Volume 10.3 fL (9.4-12.4); Monocytes # (auto) 0.43 K/uL (0.11-0.59); Monocytes % (auto) 7.3 %; Neutrophils # (auto) 3.88 K/uL (1.40-6.50); Neutrophils % (auto) 65.4 %; Platelet Count 225 K/uL (130-400); RDW Coefficient of Variation 14.6 % (11.5-14.5); Red Blood Count 4.48 M/uL (4.20-5.40); White Blood Count 5.93 K/ul (4.8-10.8)
[2024-12-21] MEDS: diphenhydrAMINE 50 MG/ML VIAL IV STA (06:08)
[2024-12-21] MEDS: METOCLOPRAMIDE HCL INJ 5 MG/ML 2 ML VIAL IV STA (06:10)
[2024-12-21] MEDS: MAG SULFATE 4GM BOLUS FROM BAG IV ONE (06:14)
[2024-12-21] MEDS: LORazepam 2 MG/1 ML VIAL IV ONE (06:21)
[2024-12-21] MEDS: LORazepam 2 MG/1 ML VIAL ONE (06:25)
[2024-12-21] MEDS: propofoL 1,000 MG/100 ML VIAL IV SCH (06:33)
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
[2024-12-21] MEDS ORDERED: fentaNYL citrate PF 100 MCG/2 ML VIAL IV PRN (06:43)
[2024-12-21 06:44] LABS: INR 1.1 (0.9-1.1); Prothrombin Time 11.8 Seconds (9.0-12.0)
[2024-12-21] MEDS ORDERED: LABETALOL HCL IV 5 MG/ML 20ML IV PRN (06:45)
[2024-12-21 06:51] LABS: Albumin Globulin Ratio 1.3 (0.9-2); BUN Creatinine Ratio 8.9 (10-20); Bilirubin,Total 0.4 mg/dl (0.2-1.0); Calcium 8.8 mg/dl (8.6-10.3); Creatinine Clr Calc Pharmacy 141.6 ml/min; Globulin 3.1 gm/dl (2.5-4.0); Potassium 3.7 mmol/L (3.5-5.1); Total Protein 7.1 gm/dl (6.0-8.3)
[2024-12-21] MEDS: hydrALAZINE HCL 20 MG/ML VIAL IV ONE (07:01)
[2024-12-21] MEDS: PROPOFOL IV EMULSION 10 MG/ML 100 ML VIAL IV ONE (07:02)
[2024-12-21] MEDS: RAPID SEQUENCE INDUCTION BAG ONE (07:02)
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
[2024-12-21] MEDS: PROPOFOL BOLUS FROM BAG IV PRN (07:06)
[2024-12-21] MEDS: LORazepam 2 MG/1 ML VIAL IV STA (07:13)
[2024-12-21] MEDS: MAGNESIUM SULFATE / WTR 40 GM/1,000 ML BAG IV SCH ×2 (07:14→07:18)
[2024-12-21] MEDS: PROPOFOL BOLUS FROM BAG IV ONE (07:15)
[2024-12-21] MEDS ORDERED: fentaNYL BOLUS from BAG IV PRN (07:16)
[2024-12-21] MEDS: fentaNYL citrate 2,500 MCG/250 ML BAG IV SCH (07:34)
--- NOTE | 2024-12-21 07:42 | XRay Report ---
EXAM: XR chest 1V portable CLINICAL HISTORY: Post intubation TECHNIQUE: An X-ray image of the chest is obtained in AP projection. COMPARISON: No prior studies are available for comparison. FINDINGS: Pulmonary Parenchyma: ETT is seen with tip is noted up to the daphne (need to pull back slightly). NG tube is see with its tips is not covered in the scan. Lungs shows bronchovascular marking. No evidence of consolidation, collapse, or focal opacities. No pulmonary nodules are identified. No evidence of pleural effusion or pleural thickening. Heart and Mediastinum: Heart size and shape are normal. No mediastinal widening or masses. No hilar or mediastinal lymphadenopathy. Bony Thorax: Bony thorax appears intact without fractures or deformities. Soft Tissues: Soft tissues overlying the chest wall are unremarkable. IMPRESSION: 1. ETT is seen with tip is noted up to the daphne (need to pull back slightly). 2. NG tube is seen with its tips is not covered in the scan. 3. Lungs shows bronchovascular marking.- possibility of congestions. Electronically signed by Rashaun Diallo 12-21-2024 07:41 AM
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
[2024-12-21] MEDS: ONDANSETRON INJ 2 MG/ML 2 ML VIAL IV STA (07:45)
[2024-12-21 07:56] LABS: Appearance Urine Clear (Clear); Bacteria Urine Automated None Seen (None Seen); Bilirubin Urine Negative (Negative); Blood Urine Trace (Negative); Color Urine Yellow; Glucose Urine UA Negative (Negative); Ketones Urine Trace (Negative); Leukocyte Esterase Urine Negative (Negative); Nitrite Urine Negative (Negative); Protein Urine 1+ (Negative); RBC Urine Automated 0-2 /hpf (0-2); Specific Gravity Urine 1.019 (1.000-1.030); Urobilinogen Urine Negative (Negative); WBC Urine Automated 0-5 /hpf (0-5)
[2024-12-21] MEDS: ICU Protocol for HYPERglycemia SCH (08:40)
[2024-12-21] MEDS: STAT IV Infusion **Titration per Protocol STA ×2 (08:51)
[2024-12-21] MEDS: FAMOTIDINE 20MG IV PUSH 20 MG/5 ML SYR IV SCH (09:14)
[2024-12-21] MEDS ORDERED: ETOMIDATE 2 MG/ML 20 ML VIAL IV ONE (14:12)
[2024-12-21] MEDS ORDERED: SUCCINYLCHOLINE CHLORIDE 20 MG/ML 10 ML VIAL IV ONE (14:12)
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
[2024-12-21] MEDS: LABETALOL HCL 100 MG TAB PO SCH (14:29)
[2024-12-21] MEDS: ICU ELECTROLYTE REPLACEMENT PROTOCOL SCH (16:26)
--- NOTE | 2024-12-21 19:33 | Obstetrical Progress Note ---
Date of Service December 21, 2024 Assessment & Plan (1) Eclampsia: Present on Admission?: Yes (2) Eclamptic seizure: Present on Admission?: Yes (3) Acute headache: Present on Admission?: Yes (4) History of labor: Present on Admission?: Yes (5) Hypertension, condition or complication: Present on Admission?: Yes Plan pt is stable to transferred from ICU to labor and delivery. Extubated this morning continue Mgso4 2 gm/hr . mag level q 2 hrly labetalol PO Admission and Anticipated Discharge Date Admission Date: December 21, 2024 Results & Data Vital Signs (Past 12 Hours) Vital Signs Temp Pulse Resp BP BP Pulse Ox Pulse Ox 12/21/24 16:12 103 H 12/21/24 15:30 117/81 12/21/24 15:06 107 H 20 100 12/21/24 15:03 108 H 21 99 12/21/24 15:00 125/86 12/21/24 14:42 108 H 20 98 12/21/24 14:30 105 H 20 100 12/21/24 14:30 112/78 12/21/24 14:09 104 H 16 100 12/21/24 13:33 105 H 0 L 96 12/21/24 13:30 116/75 12/21/24 13:30 116/75 12/21/24 13:24 104 H 19 96 12/21/24 13:09 99 H 0 L 97 12/21/24 13:00 112/76 12/21/24 12:54 107 H 17 97 12/21/24 12:51 37.4 C 12/21/24 12:30 124/83 12/21/24 12:30 101 H 18 95 12/21/24 12:03 99 H 13 97 12/21/24 12:00 127/88 12/21/24 11:54 98 H 24 98 12/21/24 11:49 12/21/24 11:36 97 H 24 97 12/21/24 11:32 136/89 12/21/24 11:09 98 H 20 96 12/21/24 10:45 111/74 12/21/24 10:45 99 H 21 94 12/21/24 10:39 97 H 21 96 12/21/24 10:15 119/79 12/21/24 10:09 95 H 18 97 12/21/24 10:00 125/88 97 12/21/24 10:00 90 17 12/21/24 09:48 87 21 97 12/21/24 09:47 141/91 H 12/21/24 09:30 12/21/24 09:24 99 H 22 96 12/21/24 09:20 99 H 12/21/24 09:18 100 H 21 96 12/21/24 09:15 116/81 12/21/24 09:12 93 H 20 97 12/21/24 09:06 99 H 21 97 12/21/24 09:00 119/87 12/21/24 08:55 37.2 C 18 125/90 97 12/21/24 08:53 96 12/21/24 08:51 100 H 21 97 12/21/24 08:48 102 H 23 96 12/21/24 08:45 125/90 12/21/24 08:39 124/91 12/21/24 08:32 12/21/24 08:29 149/99 H 12/21/24 08:24 107 H 19 12/21/24 07:57 103 H 13 100 12/21/24 07:55 121/83 12/21/24 07:50 124/88 12/21/24 07:46 136/99 12/21/24 07:45 142/110 H 12/21/24 07:36 133/101 H 12/21/24 07:30 104 H 14 112/77 99 O2 Del Method O2 Del Method 12/21/24 16:12 12/21/24 15:30 12/21/24 15:06 12/21/24 15:03 12/21/24 15:00 12/21/24 14:42 12/21/24 14:30 12/21/24 14:30 12/21/24 14:09 12/21/24 13:33 12/21/24 13:30 12/21/24 13:30 12/21/24 13:24 12/21/24 13:09 12/21/24 13:00 12/21/24 12:54 12/21/24 12:51 12/21/24 12:30 12/21/24 12:30 12/21/24 12:03 12/21/24 12:00 12/21/24 11:54 12/21/24 11:49 Room Air 12/21/24 11:36 12/21/24 11:32 12/21/24 11:09 12/21/24 10:45 12/21/24 10:45 12/21/24 10:39 12/21/24 10:15 12/21/24 10:09 12/21/24 10:00 12/21/24 10:00 12/21/24 09:48 12/21/24 09:47 12/21/24 09:30 Room Air 12/21/24 09:24 12/21/24 09:20 12/21/24 09:18 12/21/24 09:15 12/21/24 09:12 12/21/24 09:06 12/21/24 09:00 12/21/24 08:55 Room Air 12/21/24 08:53 Room Air 12/21/24 08:51 Room Air 12/21/24 08:48 12/21/24 08:45 12/21/24 08:39 12/21/24 08:32 Mechanical Vent 12/21/24 08:29 12/21/24 08:24 12/21/24 07:57 Mechanical Vent 12/21/24 07:55 12/21/24 07:50 12/21/24 07:46 12/21/24 07:45 12/21/24 07:36 12/21/24 07:30 Mechanical Vent (3) Acute headache Headache type: unspecified Intractability: not intractable Qualified Code(s): R51.9 - Headache, unspecified
[2024-12-21] MEDS: SENNA 8.6 MG TAB PO SCH (21:52)
[2024-12-22 06:02] LABS: Basophils # (auto) 0.01 K/uL (0.00-0.20); Basophils % (auto) 0.2 %; Eosinophils # (auto) 0.06 K/uL (0.00-0.50); Eosinophils % (auto) 1.1 %; Hematocrit (blood only) 41.6 % (37.0-47.0); Hemoglobin 13.6 g/dl (12.0-16.0); Immature Granulocytes # (auto) 0.01 K/uL (0.01-0.20); Immature Granulocytes % (auto) 0.2 %; Lymphocytes # (auto) 1.24 K/uL (1.20-3.40); Lymphocytes % (auto) 22.8 %; Mean Corpuscular Hemoglobin 28.9 pg (25.0-34.0); Mean Corpuscular Hgb Conc 32.7 g/dL (32.0-36.0); Mean Corpuscular Volume 88.3 fL (80.0-100.0); Mean Platelet Volume 10.1 fL (9.4-12.4); Monocytes # (auto) 0.43 K/uL (0.11-0.59); Monocytes % (auto) 7.9 %; Neutrophils # (auto) 3.68 K/uL (1.40-6.50); Neutrophils % (auto) 67.8 %; Platelet Count 218 K/uL (130-400); RDW Coefficient of Variation 15.1 % (11.5-14.5); RDW Standard Deviation 49.5 fL (36.4-46.3); Red Blood Count 4.71 M/uL (4.20-5.40); White Blood Count 5.43 K/ul (4.8-10.8)
[2024-12-22 06:16] LABS: BUN Creatinine Ratio 9.1 (10-20); Calcium 6.9 mg/dl (8.6-10.3); Potassium 3.9 mmol/L (3.5-5.1)
[2024-12-22 06:22] LABS: Phosphorus 5.1 mg/dl (2.5-4.9)
[2024-12-22 06:23] LABS: Magnesium Therapeutic L&D Only 6.7 mg/dL (4.0-8.0)
[2024-12-22] MEDS: COUGH DROP (SUGAR FREE) LOZ 24 LOZ/1 BOX BUCCAL ONE (07:50)
[2024-12-22] MEDS: COUGH DROP (SUGAR FREE) LOZ 24 LOZ/1 BOX BUCCAL PRN (07:50)
--- NOTE | 2024-12-22 08:01 | Obstetrical Progress Note ---
Date of Service December 22, 2024 Assessment & Plan (1) Eclampsia: Present on Admission?: Yes (2) Eclamptic seizure: Present on Admission?: Yes (3) Hypertension: Plan pt clinically and hemodynamically stable will discontinue MGso4 now, s/p 24 Hrs blood pressures well controlled on labetalol PO will monitor closely and reevaluate for discharge tomorrow Regular diet d/c Ramirez encourage ambulation Admission and Anticipated Discharge Date Admission Date: December 21, 2024 Subjective pt feeling better. Denies head aches (though blurry vision is prior to admission, on going), shortness of breadth, palpitations, dizziness, nausea etc. Pumping breast milk. Review of Systems Review of Systems: All systems reviewed & are unremarkable except as noted in HPI & below Constitutional: as per Subjective / HPI Respiratory: as per Subjective / HPI Cardiovascular: as per Subjective / HPI Physical Exam Constitutional: WD/WN, vitals as above Respiratory: normal respiratory effort, lungs clear to auscultation Cardiovascular: RRR, no murmur, no edema Results & Data Vital Signs (Past 12 Hours) Vital Signs Temp Pulse Resp BP BP Pulse Ox O2 Del Method 12/22/24 07:15 36.5 C 18 12/22/24 07:15 18 12/22/24 06:21 109/72 12/22/24 05:39 103/72 12/22/24 04:39 109/71 12/22/24 04:30 36.6 C 12/22/24 03:39 112/73 12/22/24 02:39 109/72 12/22/24 01:39 109/71 12/22/24 00:45 36.6 C 16 12/22/24 00:39 114/74 12/21/24 23:39 126/77 12/21/24 23:30 14 12/21/24 21:28 36.9 C 16 12/21/24 20:35 16 12/21/24 20:00 100 Room Air 12/21/24 20:00 102 H 24 124/91
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
[2024-12-22] MEDS: CALCIUM GLUCONATE 1,000 MG/60 ML BAG IV STA (16:04)
[2024-12-22] MEDS: CHLORASEPTIC (PHENOL) 1.4% SOLN 180 ML BTL MT PRN (20:56)
--- NOTE | 2024-12-23 10:03 | Obstetrical Progress Note ---
Date of Service December 23, 2024 Subjective Ambulation: ambulating normally Voiding: no voiding problems Passing Gas:: Yes Diet Tolerance:: regular diet Lochia:: Small Feeding Type:: breast feeding Current Pain Level(1-10): 0 doing well. no headaches or visual changes. Physical Exam Constitutional WD/WN, vitals as above Gastrointestinal (Abdomen) Inspection/Auscultation: abdomen normal to inspection fundus firm Musculoskeletal Extremities: extremities normal to inspection Skin no rashes, warm and dry Neurologic patellar DTR's 2+ bilat, sensation intact Psychiatric A+Ox3, euthymic affect Results & Data Vital Signs (Past 12 Hours) Vital Signs Temp Pulse Resp BP 12/23/24 04:51 36.9 C 80 18 108/72 12/23/24 00:53 37.1 C 76 18 106/73 Laboratory Results Laboratory Results - last 72 hr 12/21/24 12/21/24 12/21/24 05:40 07:20 09:41 WBC 5.93 RBC 4.48 Hgb 13.1 Hct 39.8 MCV 88.8 MCH 29.2 MCHC 32.9 RDW Std Deviation 47.0 H RDW Coeff of Ronaldo 14.6 H Plt Count 225 MPV 10.3 Immature Gran % (Auto) 0.3 Neut % (Auto) 65.4 Lymph % (Auto) 26.0 [place] % (Auto) 7.3 Eos % (Auto) 0.8 Baso % (Auto) 0.2 Neut # (Auto) 3.88 Lymph # (Auto) 1.54 [place] # (Auto) 0.43 Eos # (Auto) 0.05 Baso # (Auto) 0.01 Immature Gran # (Auto) 0.02 PT 11.8 INR 1.1 Sodium 142 Potassium 3.7 Chloride 108 H Carbon Dioxide 26 Anion Gap 8 BUN 5 L Creatinine 0.56 L Est Cr Clr Drug Dosing 141.6 eGFR 129.81 BUN/Creatinine Ratio 8.9 L Glucose 87 POC Glucose Calcium 8.8 Ionized Calcium Phosphorus Magnesium Magnesium (Sulf Ther) 4.8 Total Bilirubin 0.4 AST 18 ALT 20 Alkaline Phosphatase 116 H Total Protein 7.1 Albumin 4.0 Globulin 3.1 Albumin/Globulin Ratio 1.3 Urine Color Urine Appearance Urine pH Ur Specific [place] Urine Protein Urine Glucose (UA) Urine Ketones Urine Blood Urine Nitrite Urine Bilirubin Urine Urobilinogen Ur Leukocyte Esterase Urine WBC (Auto) Urine RBC (Auto) U Hyaline Cast (Auto) U Epithel Cells (Auto) Urine Bacteria (Auto) Nasal Screen MRSA (PCR) Negative 12/21/24 12/21/24 12/21/24 11:35 11:39 14:03 WBC RBC Hgb Hct MCV MCH MCHC RDW Std Deviation RDW Coeff of Ronaldo Plt Count MPV Immature Gran % (Auto) Neut % (Auto) Lymph % (Auto) [place] % (Auto) Eos % (Auto) Baso % (Auto) Neut # (Auto) Lymph # (Auto) [place] # (Auto) Eos # (Auto) Baso # (Auto) Immature Gran # (Auto) PT INR Sodium Potassium Chloride Carbon Dioxide Anion Gap BUN Creatinine Est Cr Clr Drug Dosing eGFR BUN/Creatinine Ratio Glucose POC Glucose 85 Calcium Ionized Calcium Phosphorus Magnesium Magnesium (Sulf Ther) 5.1 5.6 Total Bilirubin AST ALT Alkaline Phosphatase Total Protein Albumin Globulin Albumin/Globulin Ratio Urine Color Urine Appearance Urine pH Ur Specific [place] Urine Protein Urine Glucose (UA) Urine Ketones Urine Blood Urine Nitrite Urine Bilirubin Urine Urobilinogen Ur Leukocyte Esterase Urine WBC (Auto) Urine RBC (Auto) U Hyaline Cast (Auto) U Epithel Cells (Auto) Urine Bacteria (Auto) Nasal Screen MRSA (PCR) 12/21/24 12/21/24 12/21/24 15:59 16:22 17:21 WBC RBC Hgb Hct MCV MCH MCHC RDW Std Deviation RDW Coeff of Ronaldo Plt Count MPV Immature Gran % (Auto) Neut % (Auto) Lymph % (Auto) [place] % (Auto) Eos % (Auto) Baso % (Auto) Neut # (Auto) Lymph # (Auto) [place] # (Auto) Eos # (Auto) Baso # (Auto) Immature Gran # (Auto) PT INR Sodium Potassium Chloride Carbon Dioxide Anion Gap BUN Creatinine Est Cr Clr Drug Dosing eGFR BUN/Creatinine Ratio Glucose POC Glucose 95 Calcium Ionized Calcium Phosphorus Magnesium Magnesium (Sulf Ther) 5.7 5.8 Total Bilirubin AST ALT Alkaline Phosphatase Total Protein Albumin Globulin Albumin/Globulin Ratio Urine Color Urine Appearance Urine pH Ur Specific [place] Urine Protein Urine Glucose (UA) Urine Ketones Urine Blood Urine Nitrite Urine Bilirubin Urine Urobilinogen Ur Leukocyte Esterase Urine WBC (Auto) Urine RBC (Auto) U Hyaline Cast (Auto) U Epithel Cells (Auto) Urine Bacteria (Auto) Nasal Screen MRSA (PCR) 12/21/24 12/21/24 12/21/24 19:43 21:26 23:30 WBC RBC Hgb Hct MCV MCH MCHC RDW Std Deviation RDW Coeff of Ronaldo Plt Count MPV Immature Gran % (Auto) Neut % (Auto) Lymph % (Auto) [place] % (Auto) Eos % (Auto) Baso % (Auto) Neut # (Auto) Lymph # (Auto) [place] # (Auto) Eos # (Auto) Baso # (Auto) Immature Gran # (Auto) PT INR Sodium Potassium Chloride Carbon Dioxide Anion Gap BUN Creatinine Est Cr Clr Drug Dosing eGFR BUN/Creatinine Ratio Glucose POC Glucose Calcium Ionized Calcium Phosphorus Magnesium Magnesium (Sulf Ther) 5.9 5.9 6.1 Total Bilirubin AST ALT Alkaline Phosphatase Total Protein Albumin Globulin Albumin/Globulin Ratio Urine Color Urine Appearance Urine pH Ur Specific [place] Urine Protein Urine Glucose (UA) Urine Ketones Urine Blood Urine Nitrite Urine Bilirubin Urine Urobilinogen Ur Leukocyte Esterase Urine WBC (Auto) Urine RBC (Auto) U Hyaline Cast (Auto) U Epithel Cells (Auto) Urine Bacteria (Auto) Nasal Screen MRSA (PCR) 12/21/24 12/22/24 12/22/24 Unknown 05:43 13:33 WBC 5.43 RBC 4.71 Hgb 13.6 Hct 41.6 MCV 88.3 MCH 28.9 MCHC 32.7 RDW Std Deviation 49.5 H RDW Coeff of Ronaldo 15.1 H Plt Count 218 MPV 10.1 Immature Gran % (Auto) 0.2 Neut % (Auto) 67.8 Lymph % (Auto) 22.8 [place] % (Auto) 7.9 Eos % (Auto) 1.1 Baso % (Auto) 0.2 Neut # (Auto) 3.68 Lymph # (Auto) 1.24 [place] # (Auto) 0.43 Eos # (Auto) 0.06 Baso # (Auto) 0.01 Immature Gran # (Auto) 0.01 PT INR Sodium 139 Potassium 3.9 Chloride 106 Carbon Dioxide 29 Anion Gap 4 BUN 7 Creatinine 0.77 Est Cr Clr Drug Dosing 103.0 eGFR 109.72 BUN/Creatinine Ratio 9.1 L Glucose 101 H POC Glucose Calcium 6.9 L Ionized Calcium 0.96 L Phosphorus 5.1 H Magnesium Cancelled Magnesium (Sulf Ther) 6.7 Total Bilirubin AST ALT Alkaline Phosphatase Total Protein Albumin Globulin Albumin/Globulin Ratio Urine Color Yellow Urine Appearance Clear Urine pH 5.0 Ur Specific [place] 1.019 Urine Protein 1+ H Urine Glucose (UA) Negative Urine Ketones Trace H Urine Blood Trace H Urine Nitrite Negative Urine Bilirubin Negative Urine Urobilinogen Negative Ur Leukocyte Esterase Negative Urine WBC (Auto) 0-5 Urine RBC (Auto) 0-2 U Hyaline Cast (Auto) 3-5 H U Epithel Cells (Auto) 3-5 H Urine Bacteria (Auto) None Seen Nasal Screen MRSA (PCR)
--- NOTE | 2024-12-23 10:23 | Hospitalist Progress Note ---
Date of Service December 23, 2024 Assessment & Plan (1) Eclamptic seizure: Plan: -patient had provoked seizure due to eclampsia post -no evidence of prior seizures -patient likely has slightly lower seizure threshold due to gliosis and prior TBI, however no evidence of epilepsy at this time -further differential includes drug use (no evidence for this), hypoglycemia (no evidence for this), autoimmune/vasculitis (does have 1+ protein on UA however in setting of recent preeclampsia, unlikely but possible), syphyllis (recent RPR negative), meningitis (unlikely based on exam and labs), malignancy (no evidence to support this) Plan: -appreciate neurology assistance -will check CHARLEY, vasculitis panel for completion of workup -if has further pregnancies, will need monitored closely for recurrence of seizures and eclampsia symptoms -homegoing BP med recommendations: -consider transition to lisinopril and hydrochlorothiazide combined medication (start at 20/12.5 mg dosing) for homegoing, may be more effective than nifedipine/labetalol in post setting and will be recommended medications compared to labetalol/nifedpine for primary hypertension -concern patient may have hypotension with labetlol/nifedipine outpatient given low normal BP in hospital -ok for discharge from medicine perspective -medicine will follow peripherally, thank you for the consultation (2) Eclampsia: Plan: -had classic symptoms, elevated BP, leg swelling, seizure, vision changes -appreciate obstetrics care (3) History of labor: Plan: -see above, had premature rupture of membranes in September, delivered at 34 weeks after 2 month hospital stay (4) TBI (traumatic brain injury): Plan: -from childhood, per patient has minimal memory deficits -likely causes lower seizure threshold Plan I spent a total of 45 minutes in direct patient care, including [id number] time with the patient and/or family, reviewing medical records, ordering and reviewing diagnostic tests, and coordinating care with other healthcare providers. This time includes: history taking, physical examination, medical decision making, counseling, ECG interpretation, imaging interpretation, lab interpretation, orders, and education, excluding time spent in the performance of separately billed services. Admission and Anticipated Discharge Date Admission Date: December 21, 2024 Subjective Patient seen and examined at bedside. Patient doing well today, no concerns at this time. Labetalol held this morning given low BPs. Review of Systems Review of Systems: CONSTITUTIONAL: Patient denies fevers, chills, sweats and weight changes. EYES: Patient denies any visual symptoms. EARS, NOSE, AND THROAT: No difficulties with hearing. No symptoms of rhinitis or sore throat. CARDIOVASCULAR: Patient denies chest pains, palpitations, orthopnea and paroxysmal nocturnal dyspnea. RESPIRATORY: No dyspnea on exertion, no wheezing or cough. GI: No nausea, vomiting, diarrhea, constipation, abdominal pain, hematochezia or melena. : No urinary hesitancy or dribbling. No nocturia or urinary frequency. No abnormal urethral discharge. MUSCULOSKELETAL: No myalgias or arthralgias. NEUROLOGIC: No chronic headaches, no seizures. Patient denies numbness, tingling or weakness. PSYCHIATRIC: Patient denies problems with mood disturbance. No problems with anxiety. ENDOCRINE: No excessive urination or excessive thirst. DERMATOLOGIC: Patient denies any rashes or skin changes. Physical Exam Physical Exam: Gen: A&O 3 NAD HEENT: NCAT, EOMI, not icteric. External ears normal. No rhinorrhea. Moist mucous membranes. Neck: Supple, full range of motion, no observable masses, No meningeal sign. Lungs: No Respiratory distress. CV: RRR, no edema. Abdomen: Soft, nondistended, No rebound tenderness. MSK: No joint swelling, no redness. Skin: No rashes, petechiae, lesions. Normal color per patient. Neuro: Normal Gait, Grossly intact. Psych: Appropriate for situation. Results & Data Results & Data Vital Signs (Past 12 Hours) Vital Signs Temp Pulse Resp BP 12/23/24 04:51 36.9 C 80 18 108/72 12/23/24 00:53 37.1 C 76 18 106/73 Medications Administered Phenol (Chloraseptic (Phenol) 1.4% Soln 180 Ml Btl) 1 sprays MT PRN PRN PRN Reason: Sore Throat Stop: 01/21/25 19:53 Last Admin: 12/22/24 20:56 Dose: 360 sprays Documented By: WARD Sennosides (Senna 8.6 Mg Tab) 17.2 mg PO HS FREDERICK Stop: 01/20/25 20:59 Last Admin: 12/22/24 21:27 Dose: Not Given Documented By: Admin: 12/21/24 21:52 Dose: Not Given Documented By: ROLAND
[2024-12-23] MEDS: NIFEdipine EXTENDED REL 30 MG TABCR PO SCH (10:47)
[2024-12-24 08:29] VITALS: RESP 18; TEMP 99.3; O2SAT 97
--- NOTE | 2024-12-24 10:26 | Obstetrical Progress Note ---
Date of Service December 24, 2024 Subjective Ambulation: ambulating normally Voiding: no voiding problems Passing Gas:: Yes Diet Tolerance:: regular diet Lochia:: Small Feeding Type:: breast feeding Current Pain Level(1-10): 0 feeling well. no headache or visual changes Physical Exam Constitutional WD/WN, vitals as above Gastrointestinal (Abdomen) Inspection/Auscultation: abdomen normal to inspection Musculoskeletal Extremities: extremities normal to inspection Skin no rashes, warm and dry Neurologic patellar DTR's 2+ bilat, sensation intact Psychiatric A+Ox3, euthymic affect Results & Data Vital Signs (Past 12 Hours) Vital Signs Temp Pulse Resp BP Pulse Ox O2 Del Method 12/24/24 08:27 37.4 C 87 18 89/58 L 97 Room Air 12/24/24 03:10 36.8 C 86 16 107/76 98 Room Air 12/23/24 23:55 37.4 C 89 18 122/86 97 Room Air Laboratory Results 12/21/24 12/21/24 12/21/24 05:40 07:20 09:41 WBC 5.93 RBC 4.48 Hgb 13.1 Hct 39.8 MCV 88.8 MCH 29.2 MCHC 32.9 RDW Std Deviation 47.0 H RDW Coeff of Ronaldo 14.6 H Plt Count 225 MPV 10.3 Immature Gran % (Auto) 0.3 Neut % (Auto) 65.4 Lymph % (Auto) 26.0 [place] % (Auto) 7.3 Eos % (Auto) 0.8 Baso % (Auto) 0.2 Neut # (Auto) 3.88 Lymph # (Auto) 1.54 [place] # (Auto) 0.43 Eos # (Auto) 0.05 Baso # (Auto) 0.01 Immature Gran # (Auto) 0.02 PT 11.8 INR 1.1 Sodium 142 Potassium 3.7 Chloride 108 H Carbon Dioxide 26 Anion Gap 8 BUN 5 L Creatinine 0.56 L Est Cr Clr Drug Dosing 141.6 eGFR 129.81 BUN/Creatinine Ratio 8.9 L Glucose 87 POC Glucose Calcium 8.8 Ionized Calcium Phosphorus Magnesium Magnesium (Sulf Ther) 4.8 Total Bilirubin 0.4 AST 18 ALT 20 Alkaline Phosphatase 116 H Total Protein 7.1 Albumin 4.0 Globulin 3.1 Albumin/Globulin Ratio 1.3 Urine Color Urine Appearance Urine pH Ur Specific [place] Urine Protein Urine Glucose (UA) Urine Ketones Urine Blood Urine Nitrite Urine Bilirubin Urine Urobilinogen Ur Leukocyte Esterase Urine WBC (Auto) Urine RBC (Auto) U Hyaline Cast (Auto) U Epithel Cells (Auto) Urine Bacteria (Auto) Nasal Screen MRSA (PCR) Negative 12/21/24 12/21/24 12/21/24 11:35 11:39 14:03 WBC RBC Hgb Hct MCV MCH MCHC RDW Std Deviation RDW Coeff of Ronaldo Plt Count MPV Immature Gran % (Auto) Neut % (Auto) Lymph % (Auto) [place] % (Auto) Eos % (Auto) Baso % (Auto) Neut # (Auto) Lymph # (Auto) [place] # (Auto) Eos # (Auto) Baso # (Auto) Immature Gran # (Auto) PT INR Sodium Potassium Chloride Carbon Dioxide Anion Gap BUN Creatinine Est Cr Clr Drug Dosing eGFR BUN/Creatinine Ratio Glucose POC Glucose 85 Calcium Ionized Calcium Phosphorus Magnesium Magnesium (Sulf Ther) 5.1 5.6 Total Bilirubin AST ALT Alkaline Phosphatase Total Protein Albumin Globulin Albumin/Globulin Ratio Urine Color Urine Appearance Urine pH Ur Specific [place] Urine Protein Urine Glucose (UA) Urine Ketones Urine Blood Urine Nitrite Urine Bilirubin Urine Urobilinogen Ur Leukocyte Esterase Urine WBC (Auto) Urine RBC (Auto) U Hyaline Cast (Auto) U Epithel Cells (Auto) Urine Bacteria (Auto) Nasal Screen MRSA (PCR) 12/21/24 12/21/24 12/21/24 15:59 16:22 17:21 WBC RBC Hgb Hct MCV MCH MCHC RDW Std Deviation RDW Coeff of Ronaldo Plt Count MPV Immature Gran % (Auto) Neut % (Auto) Lymph % (Auto) [place] % (Auto) Eos % (Auto) Baso % (Auto) Neut # (Auto) Lymph # (Auto) [place] # (Auto) Eos # (Auto) Baso # (Auto) Immature Gran # (Auto) PT INR Sodium Potassium Chloride Carbon Dioxide Anion Gap BUN Creatinine Est Cr Clr Drug Dosing eGFR BUN/Creatinine Ratio Glucose POC Glucose 95 Calcium Ionized Calcium Phosphorus Magnesium Magnesium (Sulf Ther) 5.7 5.8 Total Bilirubin AST ALT Alkaline Phosphatase Total Protein Albumin Globulin Albumin/Globulin Ratio Urine Color Urine Appearance Urine pH Ur Specific [place] Urine Protein Urine Glucose (UA) Urine Ketones Urine Blood Urine Nitrite Urine Bilirubin Urine Urobilinogen Ur Leukocyte Esterase Urine WBC (Auto) Urine RBC (Auto) U Hyaline Cast (Auto) U Epithel Cells (Auto) Urine Bacteria (Auto) Nasal Screen MRSA (PCR) 12/21/24 12/21/24 12/21/24 19:43 21:26 23:30 WBC RBC Hgb Hct MCV MCH MCHC RDW Std Deviation RDW Coeff of Ronaldo Plt Count MPV Immature Gran % (Auto) Neut % (Auto) Lymph % (Auto) [place] % (Auto) Eos % (Auto) Baso % (Auto) Neut # (Auto) Lymph # (Auto) [place] # (Auto) Eos # (Auto) Baso # (Auto) Immature Gran # (Auto) PT INR Sodium Potassium Chloride Carbon Dioxide Anion Gap BUN Creatinine Est Cr Clr Drug Dosing eGFR BUN/Creatinine Ratio Glucose POC Glucose Calcium Ionized Calcium Phosphorus Magnesium Magnesium (Sulf Ther) 5.9 5.9 6.1 Total Bilirubin AST ALT Alkaline Phosphatase Total Protein Albumin Globulin Albumin/Globulin Ratio Urine Color Urine Appearance Urine pH Ur Specific [place] Urine Protein Urine Glucose (UA) Urine Ketones Urine Blood Urine Nitrite Urine Bilirubin Urine Urobilinogen Ur Leukocyte Esterase Urine WBC (Auto) Urine RBC (Auto) U Hyaline Cast (Auto) U Epithel Cells (Auto) Urine Bacteria (Auto) Nasal Screen MRSA (PCR) 12/21/24 12/22/24 12/22/24 Unknown 05:43 13:33 WBC 5.43 RBC 4.71 Hgb 13.6 Hct 41.6 MCV 88.3 MCH 28.9 MCHC 32.7 RDW Std Deviation 49.5 H RDW Coeff of Ronaldo 15.1 H Plt Count 218 MPV 10.1 Immature Gran % (Auto) 0.2 Neut % (Auto) 67.8 Lymph % (Auto) 22.8 [place] % (Auto) 7.9 Eos % (Auto) 1.1 Baso % (Auto) 0.2 Neut # (Auto) 3.68 Lymph # (Auto) 1.24 [place] # (Auto) 0.43 Eos # (Auto) 0.06 Baso # (Auto) 0.01 Immature Gran # (Auto) 0.01 PT INR Sodium 139 Potassium 3.9 Chloride 106 Carbon Dioxide 29 Anion Gap 4 BUN 7 Creatinine 0.77 Est Cr Clr Drug Dosing 103.0 eGFR 109.72 BUN/Creatinine Ratio 9.1 L Glucose 101 H POC Glucose Calcium 6.9 L Ionized Calcium 0.96 L Phosphorus 5.1 H Magnesium Cancelled Magnesium (Sulf Ther) 6.7 Total Bilirubin AST ALT Alkaline Phosphatase Total Protein Albumin Globulin Albumin/Globulin Ratio Urine Color Yellow Urine Appearance Clear Urine pH 5.0 Ur Specific [place] 1.019 Urine Protein 1+ H Urine Glucose (UA) Negative Urine Ketones Trace H Urine Blood Trace H Urine Nitrite Negative Urine Bilirubin Negative Urine Urobilinogen Negative Ur Leukocyte Esterase Negative Urine WBC (Auto) 0-5 Urine RBC (Auto) 0-2 U Hyaline Cast (Auto) 3-5 H U Epithel Cells (Auto) 3-5 H Urine Bacteria (Auto) None Seen Nasal Screen MRSA (PCR)
[2024-12-24] MEDS: ACETAMINOPHEN 325 MG TAB PO PRN (10:54)
[2024-12-24 13:49] VITALS: BP 107/75; PULSE 94
== END 2024-12-24 13:50 | disposition home or self-care (01) | DRG 776 ==
LOC: ED 05:09 → 1E 07:28 → 4S1 20:31 → 4E2 12-22 12:01